=== PATIENT | male | born 1960 | race Caucasian/White ===

== ENCOUNTER 2017-07-19 22:20 | Emergency (ER) | payer MEDICAID ==
[2017-07-19 23:21] VITALS: BP 117/75; PULSE 73; RESP 20; TEMP 97.8; O2SAT 97
--- NOTE | 2017-07-19 23:36 | C.PDOC ---
History Of Present Illness Pt is here requesting detox from Heroin. Time Seen by Provider: 07/19/17 22:59 Chief Complaint (Nursing): Substance Abuse History Per: Patient Onset/Duration Of Symptoms: Days Current Symptoms Are (Timing): Still Present Suicide/Self Injury Attempted (Context): None Modifying Factor(s): Narcotics Severity: Moderate Associated Symptoms: denies: Suicidal Thoughts, Suicidal Plan Additional History Per: Prior Records Past Medical History Reviewed: Historical Data, Nursing Documentation, Vital Signs Vital Signs: Last Vital Signs Temp 97.8 F 07/19/17 23:14 Pulse 73 07/19/17 23:14 Resp 20 07/19/17 23:14 BP 117/75 07/19/17 23:14 Pulse Ox 97 07/19/17 23:14 - Medical History PMH: Hepatitis (Hep C per records, 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 Constitutional: Negative for: Fever Cardiovascular: Negative for: Chest Pain Respiratory: Negative for: Shortness of Breath Gastrointestinal: Negative for: Vomiting, Abdominal Pain Musculoskeletal: Negative for: Neck Pain Neurological: Negative for: Weakness, Numbness, Seizures Psych: Negative for: Psychosis Physical Exam - Physical Exam Appears: Non-toxic, No Acute Distress Skin: Normal Color, Warm, Dry Head: Atraumatic, Normacephalic Eye(s): bilateral: PERRL Neck: Normal ROM, Supple Cardiovascular: Rhythm Regular Respiratory: Normal Breath Sounds, No Accessory Muscle Use Gastrointestinal/Abdominal: Soft, No Tenderness Back: No CVA Tenderness Extremity: Normal ROM, No Deformity Neurological/Psych: Oriented x3, Normal Motor, Normal Sensation ED Course And Treatment O2 Sat by Pulse Oximetry: 97 Pulse Ox Interpretation: Normal Progress Note: There are no detox beds available here today. Pt was given information, including a list of other detox programs. Disposition Counseled Patient/Family Regarding: Diagnosis, Need For Followup - Disposition Disposition: HOME/ ROUTINE Disposition Time: 23:36 Condition: STABLE Additional Instructions: Follow up with your doctor. Follow up with a detox program. Return to the ER if you develop worsening of symptoms or if you have any other concerns. Instructions: Narcotic Abuse (ED) Forms: [facility] (Sinhala) Print Language: BOLIVIAN - Clinical Impression Clinical Impression: Heroin abuse
== END 2017-07-19 23:42 | disposition home or self-care (01) ==
LOC: C.ER 22:20
DX: F11.10 Opioid abuse, uncomplicated (principal)